=== PATIENT | male | born 1995 | race Caucasian/White ===

== ENCOUNTER 2024-06-10 19:13 | Emergency (ER) | payer OTHER, SELFPAY ==
[2024-06-10 19:18] VITALS: BP 143/85; PULSE 99; RESP 14; TEMP 36.9; O2SAT 100; BMI 19.1
[2024-06-10] MEDS: SODIUM CHLORIDE 0.9% 1,000 ML 1000 ML IV (20:14)
[2024-06-10] MEDS: MECLIZINE HCL 12.5 MG TABLET 25 MG PO (20:14)
[2024-06-10 20:17] LABS: Add Manual Diff / Slide Review NO; Basophils Absolute Auto 0 /uL (0-100); Basophils Percent Auto 0.7 % (0-2); Eosinophils Absolute Auto 0 /uL (0-450); Eosinophils Percent Auto 0.8 % (2-4); Hematocrit 39.9 % (41-53); Hemoglobin 13.8 g/dL (13.5-17.5); Lymphocytes Absolute Auto 2200 /uL (1100-4500); Mean Corpuscular HGB Conc 34.6 % (30-36); Mean Corpuscular Volume 89.7 fL (80-100); Monocytes Absolute Auto 600 /uL (0-900); Monocytes Percent Auto 9.7 % (3-14); Neutrophils Absolute Auto 3300 /uL (1500-7000); Neutrophils Percent Auto 53.8 % (50-75); Platelet Count 183 X10^3/uL (150-400); Red Blood Cell Count 4.44 X10^6/uL (4.5-5.9); Red Cell Distribution Width 13.2 % (11.6-14.8); White Blood Cell Count 6.2 X10^3/uL (4.5-11.0)
[2024-06-10 20:23] LABS: Alanine Aminotransferase 14 IU/L (<50); Albumin 4.4 g/dL (3.5-5.0); Albumin Globulin Ratio 1.5 (1.0-2.8); Alkaline Phosphatase 58 U/L (38-126); Aspartate Aminotransferase 25 IU/L (17-59); BUN Creatinine Ratio 10.2 (6-22); Bilirubin Total 0.9 mg/dL (0.2-1.3); Blood Urea Nitrogen 10 mg/dL (9-20); Calcium 9.3 mg/dL (8.4-10.2); Carbon Dioxide 28 mmol/L (22-32); Chloride 106 mmol/L (98-107); Estimated Glomerular Filt Rate > 60 mL/min (>60); Glucose 106 mg/dL (70-100); HEMOLYSIS < 15 (0-50); Potassium 3.6 mmol/L (3.4-5.1); Sodium 141 mmol/L (137-145); Total Protein 7.4 g/dL (6.3-8.2)
[2024-06-10 20:53] LABS: Thyroid Stimulating Hormone 3.59 uIU/mL (0.47-4.68)
--- NOTE | 2024-06-10 21:31 | ED.DIZZY ---
HPI - Dizziness General Chief Complaint: Dizziness Stated Complaint: dizziness, nausea, vomiting, light sensitivity Time Seen by Provider: 06/10/24 21:18 Source: patient, RN notes reviewed and old records reviewed Mode of arrival: Ambulatory Limitations: no limitations History of Present Illness HPI Narrative: 28-year-old male history of tobacco use presents with complaint of vertigo or dizziness 5 times since May 27. Patient states episodes has been varying in length, sometimes 4 hours occasionally for a brief period. He sometimes noticed a difference with movement of his eyes. He states does not seem to matter what he is doing or what position he is in. Movement does make it worse. He has had a headache afterwards that he describes as intense 1 or 2 occasions but not every occasion. There was no headache preceding. He is denied any fevers, states vision maybe been a little bit blurred lately no double vision. Denies any numbness tingling or weakness difficulty with speech, no facial droop. Denies any chest pain or shortness of breath. He has had nausea with these episodes once or twice vomiting. Denies any new issues with bowel movements or urination. No incontinence. No difficulty with movement of extremities. Patient has not had symptoms in the past. He notes that his right ear has decreased vision for months. He states no sudden hearing changes. No ear pain no recent upper respiratory infections. Patient does use tobacco daily, occasional alcohol, no other recreational drugs. He gets primary care through the [employer] [facility] went to medical provider there who told him it was migraines and gave him a Triptan. Patient states he does not get a headache with all of these episodes. Went to urgent care who referred him to see Neurology. Patient's most recent episode was today he had some meclizine and fluids and states it has been helpful. Review of Systems Review of Systems ROS Unobtainable: All systems reviewed & are unremarkable except as noted in HPI and below Patient History Social History Smoking Status: Current every day smoker Smoking Status: Current every day smoker tobacco type: vaping alcohol intake frequency: a few times a week Substance Use Type: does not use Exam Narrative Exam Narrative: GEN: well nourished, well appearing male, alert and oriented x 3, patient appears to be in mi distress. HEENT: Atraumatic, pupils are equal round reactive to light, extraocular movements are intact, no nystagmus, nares are clear, TMs are clear with no fluid, there is no conjunctival pallor. Throat is clear without any exudates, erythema, tonsillar enlargement or uvular deviation, no facial droop HEART: Regular rate and rhythm without murmur, clicks, rubs. Pulses are equal in upper and lower extremities LUNGS:Lungs clear to auscultation, no wheezes, rales, crackles, chest moves symmetrically ABD:bowel sounds normal, soft, non-tender, no guarding, rebound, rigidity, no masses noted, no hepatosplenomegaly :No CVA tenderness MSCL: Non-tender, no muscle atrophy, muscles strength 5/5 upper and lower extremities, full range of motion, normal gait NEURO:CN 2-12 intact, sensation normal, reflexes 2/4 upper and lower extremities. finger nose finger test normal, heel quesada test normal. SKIN: No rash, erythema or other skin changes Initial Vital Signs Initial Vital Signs: Vital Signs Temperature 98.5 F 06/10/24 19:18 Pulse Rate 99 H 06/10/24 19:18 Respiratory Rate 14 06/10/24 19:18 Blood Pressure 143/85 H 06/10/24 19:18 Pulse Oximetry 100 06/10/24 19:18 Oxygen Delivery Method Room Air 06/10/24 19:18 Course Orders Ordered: ED Orders 06/10/24 19:33 CBC Auto Diff [Complete Blood Count AUTO DIFF] Stat CMP [Comprehensive Metabolic Panel] Stat TSH [Thyroid Stimulating Hormone] Stat 06/10/24 21:31 CT angio head and neck Stat CT head/brain wo con Stat Discontinued Medications Sodium Chloride (Normal Saline 0.9%) 1,000 mls @ 1,000 mls/hr IV BOLUS ONE Stop: 06/10/24 21:07 Last Infusion: 06/10/24 21:23 Dose: Infused Documented By: Admin: 06/10/24 20:14 Dose: 1,000 mls/hr Documented By: GEORGE Meclizine HCl (Meclizine Hcl 12.5 Mg Tablet) 25 mg PO NOW ONE Stop: 06/10/24 20:10 Last Admin: 06/10/24 20:14 Dose: 25 mg Documented By: GEORGE Vital Signs Vital signs: Vital Signs - 8 hr 08/14/24 22:50 Temperature 98.2 F Pulse Rate 75 Respiratory Rate 19 Blood Pressure 120/75 Pulse Oximetry 98 Oxygen Delivery Method Room Air MDM - Dizziness Lab Data 06/10/24 19:33 06/10/24 19:33 Labs: Lab Results 06/10/24 Range/Units 19:33 WBC 6.2 (4.5-11.0) X10^3/uL RBC 4.44 L (4.5-5.9) X10^6/uL Hgb 13.8 (13.5-17.5) g/dL Hct 39.9 L (41-53) % MCV 89.7 (80-100) fL MCH 31.0 (26-34) PG MCHC 34.6 (30-36) % RDW 13.2 (11.6-14.8) % Plt Count 183 (150-400) X10^3/uL Neut % (Auto) 53.8 (50-75) % Lymph % (Auto) 35.0 (25-40) % [place] % (Auto) 9.7 (3-14) % Eos % (Auto) 0.8 L (2-4) % Baso % (Auto) 0.7 (0-2) % Neut # (Auto) 3300 (5372-9398) /uL Lymph # (Auto) 2200 (1744-8368) /uL [place] # (Auto) 600 (0-900) /uL Eos # (Auto) 0 (0-450) /uL Baso # (Auto) 0 (0-100) /uL Sodium 141 (137-145) mmol/L Potassium 3.6 (3.4-5.1) mmol/L Chloride 106 (98-107) mmol/L Carbon Dioxide 28 (22-32) mmol/L BUN 10 (9-20) mg/dL Creatinine 0.98 (0.66-1.25) mg/dL Estimated GFR > 60 (>60) mL/min BUN/Creatinine Ratio 10.2 (6-22) Glucose 106 H (70-100) mg/dL Calcium 9.3 (8.4-10.2) mg/dL Total Bilirubin 0.9 (0.2-1.3) mg/dL AST 25 (17-59) IU/L ALT 14 (<50) IU/L Alkaline Phosphatase 58 (38-126) U/L Total Protein 7.4 (6.3-8.2) g/dL Albumin 4.4 (3.5-5.0) g/dL Globulin 3.0 (1.7-4.1) g/dL Albumin/Globulin Ratio 1.5 (1.0-2.8) TSH 3.59 (0.47-4.68) uIU/mL Imaging Data CT scan - head: Radiologist's Impression: David Davidson??28??M??1995 ? Allergy/Adv: Not Recorded Close Head/Neck CTA (Signed) KarthikRamy - 06/10/[address] (Signed) KarthikRamy - 06/10/24 Launch?[place] [address] CT Scan Report Signed Patient: David Davidson MR#: [id number] : 1995 Acct:[id number] Age/Sex: 28 / M Date of Service: 06/10/24 Loc: ED Accession Number: [id number] Procedure: CT head/brain wo con Ordering Provider: Dari Rcoha D.O. PROCEDURE: CT HEAD/BRAIN WO CON INDICATIONS: vertigo x 5 since 05/27, sometimes cardenas afterwards TECHNIQUE: Noncontrast 4.5 mm thick angled axial sections acquired from the foramen magnum to the vertex, with coronal and sagittal reformats. For radiation dose reduction, the following was used: automated exposure control, adjustment of mA and/or kV according to patient size. COMPARISON: None. FINDINGS: Image quality: Diagnostic. CSF spaces: Basal cisterns are patent. No extra-axial fluid collections. Ventricles are normal in size and shape. Brain: No midline shift. No intracranial masses or hemorrhage. Stephenson-white matter interface is normal. Skull and face: Calvarium and visualized facial bones are intact, without suspicious lesions. Sinuses: Visualized sinuses and mastoids are clear. IMPRESSION: No acute intracranial pathology. Dictated by: Ramy Angeles M.D. on 06/10/2024 at 21:57 Approved by: Ramy Angeles M.D. on 06/10/2024 at 21:58 CTA - brain/neck: Radiologist's Impression: David Davidson??28??M??1995 ? Allergy/Adv: Not Recorded Close Head/Neck CTA (Signed) Ramy Angeles - 06/10/[address] (Signed) Ramy Angeles - 06/10/24 Launch?[address] [address] [address] Scan Report Signed Patient: David Davidson MR#: [id number] : 1995 Acct:[id number] Age/Sex: 28 / M Date of Service: 06/10/24 Loc: ED Accession Number: [id number] Procedure: CT angio head and neck Ordering Provider: Dari Rocha D.O. PROCEDURE: CT ANGIO HEAD AND NECK INDICATIONS: vertigo x 5 since 05/27, sometimes cardenas afterwards TECHNIQUE: After the administration of intravenous contrast, 1.5 mm axial sections acquired from the aortic arch to the [place] of [place]. Maximum intensity projection (MIP) reformats were then performed. COMPARISON: None. FINDINGS: Image quality: Diagnostic. Carotid system: The great vessels demonstrate a conventional anatomy as they arise from the aortic arch. The origins of the common carotid arteries appear patent. The common carotid arteries demonstrate normal calibers and courses. The bifurcation regions appear normal bilaterally. The internal carotid arteries demonstrate normal caliber and course. Posterior circulation: The origins of the vertebral arteries appear patent. The more superior portions of the vertebral arteries demonstrate normal course and caliber. They join to form a normal appearing basilar artery. Soft tissues: Visualized neck soft tissues demonstrate no suspicious abnormalities. The thyroid gland demonstrates no significant abnormality. Bones: No suspicious bony lesions. Visualized cervical spine appears normally aligned. IMPRESSION: No significant abnormality is seen within the arteries of the neck. Any quantitative stenosis measurements were performed using the NASCET criteria. Dictated by: Ramy Angeles M.D. on 06/10/2024 at 22:25 Approved by: Ramy Angeles M.D. on 06/10/2024 at 22:27 MDM Narrative Medical decision making narrative: 28-year-old male history of tobacco use who describes it sounds like vertigo with movement of the room sometimes worse with movement of his eyes can last hours has had 5 episodes since the past 2 weeks. Has occasionally had what he describes as an intense headache afterwards but not every time. No fevers or meningeal signs. Patient has not had any upper respiratory infections he notes his right ear has chronic decreased hearing but nothing new or changing. No other acute neurologic changes appreciated. Labs show white count of 6.2 hemoglobin of 13.8, platelets of 183. Electrolytes are appropriate, CO2 is 28 BUN 10 creatinine 0.98 glucose of 106 calcium 9.3 LFTs are negative, TSH is 3.59. Head CT and CT angio show no acute change. Patient had fluids and meclizine in his had some improvement in symptoms. Discussed with patient we will give referral for ENT to follow up if symptoms are persistent. Imaging and lab work today is overall reassuring patient's neurologic exam is reassuring. Patient felt appropriate for discharge. Discharge Plan Departure Patient Disposition: Home Clinical Impression: Vertigo Instructions: DI for Vertigo Activity Restrictions/Additional Instructions: Follow up as needed if you are having persistent symptoms you can follow up with ENT, contact is included below. They can evaluate for vestibular testing. You can take meclizine 1-2 tablets every 6-8 hours as needed. This medications it is available [id number] also known as Bonivert. Please return for fevers, severe headaches, sudden vision changes, double vision, new numbness, tingling or weakness, difficulty with speech, inability to ambulate or move safely, persistent vomiting or other new or concerning changes. Referrals: Olivier Acuna MD [Physician] - Provider,Odell DURAN [Primary Care Provider] - Stand Alone Forms: Patient Portal/API
[2024-06-10 22:50] VITALS: BP 120/75; PULSE 75; RESP 19; TEMP 36.8; O2SAT 98
== END 2024-06-10 22:55 | disposition home or self-care (01) ==
PROVIDERS: Emergency Provider Emergency Medicine
DX: R42 Dizziness and giddiness (principal); R11.2 Nausea with vomiting, unspecified
CPT/HCPCS: 36415; 70450; 70496; 70498; 80053; 84443; 85025; 96360; 99284; Q9967

== ENCOUNTER 2025-02-07 11:32 | Emergency (ER) | payer OTHER, SELFPAY ==
[2025-02-07 11:35] VITALS: BP 133/75; PULSE 86; RESP 14; TEMP 36.9; O2SAT 99; BMI 19.2
--- NOTE | 2025-02-07 12:30 | DI.RAD.S_ITS ---
PROCEDURE: XR CHEST 2V INDICATIONS: URI, short of breath TECHNIQUE: 2 views of the chest were acquired. COMPARISON: None. FINDINGS: Surgical changes and devices: None. Lungs and pleura: Lungs are clear. No pleural effusions or pneumothorax. Mediastinum: Mediastinal contours are normal. Heart size is normal. Bones and chest wall: No suspicious bony abnormalities. Soft tissues appear unremarkable. IMPRESSION: No focal infiltrates are seen. No acute cardiopulmonary abnormality is seen. Dictated by: Ned Floyd M.D. on 02/07/2025 at 12:09 Approved by: Ned Floyd M.D. on 02/07/2025 at 12:10
--- NOTE | 2025-02-07 12:36 | ED_ITS ---
HPI - URI/Sore Throat General Chief Complaint: Upper Respiratory Symptoms Stated Complaint: cough/congestion/sore throat T-7 Time Seen by Provider: 02/07/25 11:59 Source: patient Mode of arrival: Ambulatory History of Present Illness HPI Narrative: Mr. Davidson is a very pleasant 29-year-old male with no reported past medical history, he does vape, who presents to emergency department for upper respiratory infection type symptoms x1 week. Reports that everybody at his work has been sick. States he started with a scratchy throat and intermittent cough and this is continued. He has sinus congestion, runny nose, dry cough, sore throat. He has been trying multiple [id number] medications such as DayQuil, NyQuil, TheraFlu, Mucinex without relief in symptoms. Denies abdominal pain, nausea, vomiting, fevers, chills. Related Data Previous Rx's Medication Instructions Recorded benzonatate 200 mg capsule 200 mg PO BID-TID PRN cough #20 02/07/25 caps fluticasone propionate 50 1 spray intranasal DAILY #16 grams 02/07/25 mcg/actuation nasal spray,suspension (Flonase Allergy Relief) Review of Systems Review of Systems ROS Unobtainable: All systems reviewed & are unremarkable except as noted in HPI and below Patient History Social History Smoking Status: Current every day smoker Smoking Status: Current every day smoker tobacco type: vaping alcohol intake frequency: a few times a week Exam Narrative Exam Narrative: GENERAL: 29 year old patient appears stated age. Well-developed patient, in no acute distress. HEAD: Atraumatic. Normocephalic. EYES: Extraocular motions intact. No scleral icterus. No injection or drainage. ENT: Normal TMs bilaterally, no erythema or bulging. Nose without bleeding, purulent drainage. Throat with mild posterior oropharyngeal erythema, NO tonsillar hypertrophy or exudate. Airway patent. NECK: Trachea midline. Cervical ROM intact. CARDIOVASCULAR: Regular rate and rhythm. RESPIRATORY: ?Nonlabored respirations. ?Speaking in clear, full sentences. ?Dry cough. Clear to auscultation. Breath sounds equal bilaterally. No wheezes, rales, or rhonchi. ? EXTREMITIES: No edema NEURO: AOx3. ?Clear speech. ?Moves all 4 extremities appropriately. SKIN: No rash or erythema of visible areas Initial Vital Signs Initial Vital Signs: Vital Signs Temperature 98.4 F 02/07/25 11:35 Pulse Rate 86 02/07/25 11:35 Respiratory Rate 14 02/07/25 11:35 Blood Pressure 133/75 02/07/25 11:35 Pulse Oximetry 99 02/07/25 11:35 Oxygen Delivery Method Room Air 02/07/25 11:35 Course Orders Ordered: ED Orders 02/07/25 12:30 CXR [XR chest 2V] Stat 02/07/25 12:33 Covid-19 + FLU A/B + RSV - PCR Stat Discontinued Medications Benzonatate (Benzonatate 100 Mg Capsule) 200 mg PO NOW ONE Stop: 02/07/25 12:43 Last Admin: 02/07/25 12:51 Dose: 200 mg Documented By: WEI Ibuprofen (Ibuprofen 400 Mg Tablet) 600 mg PO NOW ONE Stop: 02/07/25 12:43 Last Admin: 02/07/25 12:51 Dose: 600 mg Documented By: WEI Vital Signs Vital signs: Vital Signs - 8 hr 02/07/25 11:35 Temperature 98.4 F Pulse Rate 86 Respiratory Rate 14 Blood Pressure 133/75 Pulse Oximetry 99 Oxygen Delivery Method Room Air MDM - URI/Sore Throat Medical Records Attestation: I reviewed the patient's medical records. Lab Data Labs: Lab Results 02/07/25 Range/Units 12:33 SARS-CoV-2 (PCR) Negative (Negative) Influenza A (RT-PCR) Flu a negative (NEGATIVE) Influenza B (RT-PCR) Flu b negative (NEGATIVE) RSV (PCR) Negative (Negative) Imaging Data Chest x-ray: Radiologist's Impression: PROCEDURE: XR CHEST 2V INDICATIONS: URI, short of breath TECHNIQUE: 2 views of the chest were acquired. COMPARISON: None. FINDINGS: Surgical changes and devices: None. Lungs and pleura: Lungs are clear. No pleural effusions or pneumothorax. Mediastinum: Mediastinal contours are normal. Heart size is normal. Bones and chest wall: No suspicious bony abnormalities. Soft tissues appear unremarkable. IMPRESSION: No focal infiltrates are seen. No acute cardiopulmonary abnormality is seen. [facility] Narrative Medical decision making narrative: 29-year-old male with no reported past medical history, he does vape, who pre sents to emergency department for upper respiratory infection type symptoms x1 week. Symptoms not improving with OTC regimens. Differential diagnosis includes but is not limited to viral syndrome, viral URI, bronchitis, bacterial pneumonia, viral sinusitis, viral pharyngitis, etc. On exam the patient is in no acute distress, nontoxic-appearing, all vital signs within normal limits. Physical exam reveals a mildly erythematous posterior oropharynx, no wheezing auscultated on lung exam. Due the duration of his symptoms, we will proceed with chest x-ray and viral swab, we will treat with ibuprofen and benzonatate. Chest x-ray negative for pneumonia. Viral swab negative. Suspect viral URI/bronchitis. Prescribed Flonase, benzonatate, recommended ibuprofen Tylenol if needed for pain, increased hydration and warm tea with honey. Discussed strict ED return precautions. Patient verbalized understanding of all information with the plan. He is stable for discharge home. Discharge Plan Departure Patient Disposition: Home Clinical Impression: Upper respiratory infection Qualifiers: URI type: unspecified viral URI Qualified Code(s): J06.9 - Acute upper respiratory infection, unspecified Instructions: DI for Acute Bronchitis Activity Restrictions/Additional Instructions: Thank you for coming to the emergency department. Today you were evaluated for an upper respiratory illness for the last week. Your chest x-ray was negative for pneumonia and your viral swab was negative for flu, COVID, RSV. At this time your symptoms are most consistent with a viral upper respiratory infection/bronchitis. Please use ibuprofen and acetaminophen if needed for pain or fevers, prescribed benzonatate if needed for cough an intranasal flonase for nasal congestion. Please rest, hydrate, drink warm tea with honey to help soothe her throat, and follow up with the primary care doctor. Please return to the emergency department if develop any new or worsening symptoms or do not get better within the next week. Please follow up with your primary care doctor within the next 2-3 days for ER follow-up. (If you do not have a PCP you can call [phone]. ?to schedule an appointment with an [facility] Primary Care Provider) IF YOU DEVELOP ANY NEW OR WORSENING SYMPTOMS, RETURN TO THE ER! Please read the attached instructions, they highlight more specific treatments and interventions for you at home. Thank you for letting me participate in your care, Holley Haider PA-C Prescriptions: New benzonatate 200 mg capsule 200 mg PO BID-TID PRN (Reason: cough) Qty: 20 0RF fluticasone propionate [Flonase Allergy Relief] 50 mcg/actuation spray,suspension 1 spray intranasal DAILY Qty: 16 0RF Rx Instructions: administer into each nostril Referrals: Odell Hutchinson [Primary Care Provider] - Stand Alone Forms: Patient Portal/API/Survey
[2025-02-07] MEDS: BENZONATATE 100 MG CAPSULE 200 MG PO (12:51)
[2025-02-07] MEDS: IBUPROFEN 400 MG TABLET 600 MG PO (12:51)
[2025-02-07 13:17] LABS: COVID-19 CEPHEID 4-PLEX PCR Negative (Negative); Influenza A - CEPHEID Flu A NEGATIVE (NEGATIVE); Influenza B - CEPHEID Flu B NEGATIVE (NEGATIVE); Respiratory Syncytial Virus Negative (Negative)
[2025-02-07 14:31] VITALS: BP 120/72; PULSE 66; RESP 18; TEMP 36.8; O2SAT 99
== END 2025-02-07 14:13 | disposition home or self-care (01) ==
PROVIDERS: Emergency Provider Physician Assistant
DX: J06.9 Acute upper respiratory infection, unspecified (principal); F17.200 Nicotine dependence, unspecified, uncomplicated
CPT/HCPCS: 0241U; 71046; 99283